=== PATIENT | female | born 1950 | race Caucasian/White ===

== ENCOUNTER 2016-05-28 20:13 | Emergency (ER) | payer MEDICARE, MEDICAID ==
[2016-05-28] MEDS ORDERED: Fentanyl 100 MCG/2 ML VIAL ONE (20:39)
[2016-05-28] MEDS ORDERED: Nitroglycerin 0.4 MG TAB (25 Tab Bottle) ONE (20:39)
[2016-05-28 21:05] LABS: PTT 25.2 SEC (22.9-36.1); Prothrombin Time 13.7 SEC (12.0-14.7)
[2016-05-28 21:07] LABS: D-Dimer Test 0.27 *mcg/mL (0.27-0.43)
[2016-05-28 21:12] LABS: #Basophils 0.1 thou/uL (0.0-0.2); #Eosinphils 0.1 thou/uL (0.0-0.7); #Lymphocytes 1.9 thou/uL (1.20-3.40); #Monocytes 0.7 thou/uL (0.11-0.59); #Neutrophils 3.1 thou/uL (1.40-6.50); %Basophils 1.4 % (0.0-1.0); %Eosinophils 1.5 % (0.0-10.0); %Lymphocytes 32.1 % (21.0-51.0); %Monocytes 11.1 % (0.0-10.0); %Neutrophils 53.9 % (42.0-75.0); ALT (SGPT) 18 U/L (0-55); AST (SGOT) 18 U/L (5-34); Albumin 4.3 g/dL (3.4-4.8); Alkaline Phosphatase 74 U/L (40-150); Anion Gap 17 mmol/L (10-20); BUN (Urea Nitrogen) 20 mg/dL (9.8-20.1); Bilirubin, Total 0.5 mg/dL (0.2-1.2); CK (CPK) 99 U/L (29-168); Calc. Creatinine Clearance 0 mL/min (70-130); Calcium 9.4 mg/dL (7.8-10.44); Carbon Dioxide 24 mmol/L (23-31); Chloride 105 mmol/L (98-107); Estimated GFR-MDRD 53; Glucose 91 mg/dL (80-115); Hemoglobin 12.6 g/dL (12.0-16.0); Mean Corpuscular HGB CONC 33.6 g/dL (32.0-36.0); Mean Corpuscular Hemoglobin 32.4 pg (27.0-31.0); Mean Corpuscular Volume 96.4 fl (81.0-99.0); Mean Platelet Volume 9.1 fL (7.4-10.4); Platelet Count 202 thou/uL (130-400); Potassium 3.5 mmol/L (3.5-5.1); Protein, Total 7.3 g/dL (5.8-8.1); RBC Distribution Width 12.4 % (11.5-14.5); Red Blood Cell (RBC) Count 3.89 mill/uL (4.20-5.40); Sodium 142 mmol/L (136-145); White Blood Cell (WBC) Count 5.8 thou/uL (4.8-10.8)
[2016-05-28 21:18] LABS: CKMB 0.8 ng/mL (0-6.6); Troponin I Less than 0.010 ng/mL (< 0.028)
--- NOTE | 2016-05-28 22:01 | RAD ---
PORTABLE CHEST 05/28/16 An AP portable film at 2035 is compared with the 03/01/14 study. The cardiac size is about the same. There is no clear vascular congestion, edema, or pleural effusio n. A little linear streaking is seen in the right base which could be atelectasis. No major lobar in filtrate was seen. IMPRESSION: No acute finding. POS: HOME
[2016-05-28 23:05] LABS: Troponin I Less than 0.010 ng/mL (< 0.028)
== END 2016-05-28 23:16 | disposition home or self-care (01) ==
LOC: BURERS 20:13
DX: R07.82 Intercostal pain (principal); I25.2 Old myocardial infarction; E78.5 Hyperlipidemia, unspecified; E78.00 Pure hypercholesterolemia, unspecified; I10 Essential (primary) hypertension
CPT/HCPCS: 36415; 71010; 80053; 82553; 84484; 85025; 85379; 85610; 85730; 93005; 96374; J3010

== ENCOUNTER 2018-03-10 22:02 | Emergency (ER) | payer MEDICARE, MEDICAID ==
[2018-03-10] MEDS ORDERED: Doxycycline Hyclate 100 MG TAB ONE (22:16)
[2018-03-10] MEDS ORDERED: Bupivacaine 0.5% 10 ML VIAL ONE (22:16)
== END 2018-03-10 22:22 | disposition home or self-care (01) ==
LOC: BURERS 22:02
DX: K04.7 Periapical abscess without sinus (principal); K02.9 Dental caries, unspecified; I25.2 Old myocardial infarction; E78.5 Hyperlipidemia, unspecified; I10 Essential (primary) hypertension; M10.9 Gout, unspecified; Z79.899 Other long term (current) drug therapy; Z79.82 Long term (current) use of aspirin
CPT/HCPCS: 64400; J3490

== ENCOUNTER 2018-07-01 03:52 | Emergency (ER) | payer MEDICARE, MEDICAID ==
[2018-07-01] MEDS ORDERED: Nitroglycerin 0.4 MG TAB 1 EACH ONE (04:33)
[2018-07-01 04:43] LABS: #Basophils 0.1 thou/uL (0.0-0.2); #Eosinphils 0.1 thou/uL (0.0-0.7); #Lymphocytes 2.8 thou/uL (1.20-3.40); #Monocytes 0.7 thou/uL (0.11-0.59); #Neutrophils 2.7 thou/uL (1.40-6.50); %Basophils 1.1 % (0.0-1.0); %Eosinophils 1.5 % (0.0-10.0); %Lymphocytes 43.6 % (21.0-51.0); %Neutrophils 42.8 % (42.0-75.0); Hemoglobin 12.9 g/dL (12.0-16.0); Mean Corpuscular HGB CONC 33.5 g/dL (32.0-36.0); Mean Corpuscular Hemoglobin 31.6 pg (27.0-31.0); Mean Corpuscular Volume 94.4 fL (78.0-98.0); Mean Platelet Volume 7.7 fL (7.4-10.4); Platelet Count 189 thou/uL (130-400); RBC Distribution Width 11.6 % (11.5-14.5); Red Blood Cell (RBC) Count 4.08 mill/uL (4.20-5.40); White Blood Cell (WBC) Count 6.3 thou/uL (4.8-10.8)
[2018-07-01 04:52] LABS: ALT (SGPT) 20 U/L (8-55); AST (SGOT) 20 U/L (5-34); Albumin 4.5 g/dL (3.4-4.8); Alkaline Phosphatase 92 U/L (40-150); Anion Gap 15 mmol/L (10-20); BUN (Urea Nitrogen) 13 mg/dL (9.8-20.1); Bilirubin, Total 0.4 mg/dL (0.2-1.2); Calc. Creatinine Clearance 0 mL/min (70-130); Calcium 9.5 mg/dL (7.8-10.44); Carbon Dioxide 29 mmol/L (23-31); Chloride 95 mmol/L (98-107); Estimated GFR-MDRD 69; Globulin 2.8 g/dL (2.4-3.5); Glucose 115 mg/dL (80-115); Lipase 29 U/L (8-78); Protein, Total 7.3 g/dL (6.0-8.3); Sodium 136 mmol/L (136-145)
[2018-07-01 04:57] LABS: Potassium 2.6 mmol/L (3.5-5.1)
[2018-07-01] MEDS ORDERED: Potassium Chloride 20 MEQ/100 ML PREMIX BAG ONE (05:00)
[2018-07-01] MEDS ORDERED: Potassium Chloride 20 MEQ TAB ONE (05:00)
--- NOTE | 2018-07-01 10:00 | RAD ---
PORTABLE CHEST: DATE: 07/01/2018. FINDINGS: An AP portable film at 0437 is compared with a 03/18 study. The heart size is stable. The interstitial markings of the lungs seem a little more prominent today than before. I cannot rule out slight congestion. There are no large effusions or lobar consolidati ons. IMPRESSION: Slight vascular prominence. See above. POS: HOME
== END 2018-07-01 05:26 | disposition short-term general hospital (02) ==
LOC: BURERS 03:52
DX: R07.9 Chest pain, unspecified (principal); I25.2 Old myocardial infarction; E78.5 Hyperlipidemia, unspecified; M10.9 Gout, unspecified; Z79.899 Other long term (current) drug therapy; Z79.82 Long term (current) use of aspirin
CPT/HCPCS: 71045; 80053; 83690; 84484; 85025; 93005; 96374; J3480

== ENCOUNTER 2020-01-28 15:01 | Emergency (ER) | payer MEDICARE, MEDICAID ==
[2020-01-28 15:51] LABS: #Lymphocytes 1.1 thou/uL (1.20-3.40); #Monocytes 0.9 thou/uL (0.11-0.59); %Basophils 0.6 % (0.0-1.0); %Eosinophils 0.2 % (0.0-10.0); %Lymphocytes 13.1 % (21.0-51.0); %Monocytes 10.6 % (0.0-10.0); %Neutrophils 75.5 % (42.0-75.0); Hemoglobin 12.6 g/dL (12.0-16.0); Mean Corpuscular HGB CONC 31.7 g/dL (32.0-36.0); Mean Corpuscular Hemoglobin 30.7 pg (27.0-31.0); Mean Corpuscular Volume 96.9 fL (78.0-98.0); Mean Platelet Volume 7.7 fL (7.4-10.4); Platelet Count 220 thou/uL (130-400); RBC Distribution Width 12.3 % (11.5-14.5)
[2020-01-28 16:06] LABS: ALT (SGPT) 15 U/L (8-55); AST (SGOT) 13 U/L (5-34); Albumin 4.4 g/dL (3.4-4.8); Alkaline Phosphatase 74 U/L (40-110); Anion Gap 15 mmol/L (10-20); BUN (Urea Nitrogen) 17 mg/dL (9.8-20.1); Bilirubin, Total 0.3 mg/dL (0.2-1.2); Calc. Creatinine Clearance 0 mL/min (70-130); Calcium 9.5 mg/dL (7.8-10.44); Carbon Dioxide 31 mmol/L (23-31); Chloride 95 mmol/L (98-107); Estimated GFR-MDRD 62; Globulin 3.3 g/dL (2.4-3.5); Glucose 144 mg/dL (83-110); Potassium 3.4 mmol/L (3.5-5.1); Protein, Total 7.7 g/dL (6.0-8.3); Sodium 138 mmol/L (136-145)
--- NOTE | 2020-01-28 16:36 | CT ---
CT ABDOMEN AND PELVIS WITHOUT CONTRAST: Date: 01/28/[address] of the abdomen and pelvis was done for evaluation of lower abdominal pain. The lung bases are clear. The liver, spleen, pancreas, gallbladder, adrenal glands, kidneys, and abdo tesfaye aorta showed no acute findings. Dense arterial calcifications are seen in the aorta. A few calc ifications around the hilum of the liver are judged to be vascular in nature as well. The major finding on this study is sigmoid diverticulosis with an area of streaking between it and th e top of the urinary bladder. Diverticulitis is presumed. There is no focal abscess or substantial fr ee fluid present at the moment. No free air was seen. There is no dilation of bowel to suggest obstru ction. CT of the pelvis was remarkable for the findings listed above. IMPRESSION: Presumed sigmoid diverticulitis. Findings called to Dr. Johnson at 1557 hours on 01/28/2020. CODE CR. POS: HOME
[2020-01-28] MEDS ORDERED: metroNIDAZOLE 250 MG TAB ONE (16:51)
[2020-01-28] MEDS ORDERED: Ciprofloxacin 500 MG TAB ONE (16:51)
[2020-01-28 16:55] LABS: Bilirubin Negative (Negative); Blood, Urine Negative (Negative); Clarity Clear (Clear); Glucose, Urine (Dipstick) Negative (Negative); Ketone, Urine Negative (Negative); Leukocyte Negative (Negative); Nitrite Negative (Negative); Protein, Urine (Dipstick) Negative (Neg-Trace); Urobilinogen 0.2 mg/dL (Less than 2)
== END 2020-01-28 17:50 | disposition home or self-care (01) ==
LOC: BURERS 15:01
DX: K57.32 Diverticulitis of large intestine without perforation or abscess without bleeding (principal); E78.5 Hyperlipidemia, unspecified; E78.00 Pure hypercholesterolemia, unspecified; I10 Essential (primary) hypertension; M10.9 Gout, unspecified; Z79.82 Long term (current) use of aspirin; Z79.899 Other long term (current) drug therapy
CPT/HCPCS: 36415; 74176; 80053; 81003; 85025

== ENCOUNTER 2020-01-29 01:01 | Emergency (ER) | payer MEDICARE, OTHER ==
[2020-01-29] MEDS ORDERED: Acetaminophen/Codeine 30-300mg Tablet ONE (01:25)
== END 2020-01-29 01:32 | disposition home or self-care (01) ==
LOC: BURERS 01:01
DX: K57.93 Diverticulitis of intestine, part unspecified, without perforation or abscess with bleeding (principal); E78.5 Hyperlipidemia, unspecified; E78.00 Pure hypercholesterolemia, unspecified; I10 Essential (primary) hypertension; M10.9 Gout, unspecified; Z79.82 Long term (current) use of aspirin; Z79.899 Other long term (current) drug therapy
CPT/HCPCS: 99283

== ENCOUNTER 2020-03-31 17:18 | Emergency (ER) | payer MEDICARE, OTHER ==
[2020-03-31 17:46] LABS: #Basophils 0.1 thou/uL (0.0-0.2); #Eosinphils 0.1 thou/uL (0.0-0.7); #Lymphocytes 1.8 thou/uL (1.20-3.40); #Monocytes 0.5 thou/uL (0.11-0.59); %Basophils 1.4 % (0.0-1.0); %Eosinophils 1.8 % (0.0-10.0); %Lymphocytes 40.9 % (21.0-51.0); %Monocytes 11.4 % (0.0-10.0); %Neutrophils 44.5 % (42.0-75.0); Hemoglobin 12.1 g/dL (12.0-16.0); Mean Corpuscular HGB CONC 32.6 g/dL (32.0-36.0); Mean Corpuscular Volume 98.1 fL (78.0-98.0); Mean Platelet Volume 7.5 fL (7.4-10.4); Platelet Count 243 thou/uL (130-400); RBC Distribution Width 12.5 % (11.5-14.5); Red Blood Cell (RBC) Count 3.78 mill/uL (4.20-5.40); White Blood Cell (WBC) Count 4.4 thou/uL (4.8-10.8)
[2020-03-31 17:51] LABS: INR-International Normal Ratio 0.9; PTT 27.5 sec (22.9-36.1); Prothrombin Time 12.7 sec (12.0-14.7)
[2020-03-31 18:01] LABS: ALT (SGPT) 20 U/L (8-55); AST (SGOT) 20 U/L (5-34); Albumin 4.4 g/dL (3.4-4.8); Alkaline Phosphatase 63 U/L (40-110); Anion Gap 16 mmol/L (10-20); BUN (Urea Nitrogen) 21 mg/dL (9.8-20.1); Bilirubin, Total 0.3 mg/dL (0.2-1.2); CK (CPK) 61 U/L (29-168); Calc. Creatinine Clearance 0 mL/min (70-130); Calcium 9.2 mg/dL (7.8-10.44); Carbon Dioxide 29 mmol/L (23-31); Chloride 99 mmol/L (98-107); Globulin 3.1 g/dL (2.4-3.5); Glucose 93 mg/dL (83-110); Potassium 3.8 mmol/L (3.5-5.1); Protein, Total 7.5 g/dL (5.8-8.1); Sodium 140 mmol/L (136-145)
[2020-03-31] MEDS ORDERED: Boostrix 0.5 ML (Tdap) VIAL ONE (18:08)
[2020-03-31] MEDS ORDERED: Bacitracin 1 PK ONE (18:13)
== END 2020-03-31 18:21 | disposition home or self-care (01) ==
LOC: BURERS 17:18
DX: S61.257A Open bite of left little finger without damage to nail, initial encounter (principal); E78.5 Hyperlipidemia, unspecified; E78.00 Pure hypercholesterolemia, unspecified; I10 Essential (primary) hypertension; M10.9 Gout, unspecified; I25.2 Old myocardial infarction; Z79.82 Long term (current) use of aspirin; Z79.899 Other long term (current) drug therapy; W59.11XA Bitten by nonvenomous snake, initial encounter
CPT/HCPCS: 36415; 80053; 82550; 85025; 85384; 85610; 85730; 90471; 90715

== ENCOUNTER 2020-05-25 12:00 | Emergency (ER) | payer MEDICARE, OTHER ==
[2020-05-25] MEDS ORDERED: traMADol HCl 50 MG TAB ONE (12:38)
[2020-05-25] MEDS ORDERED: Clindamycin 150 MG CAP ONE (12:39)
== END 2020-05-25 12:50 | disposition home or self-care (01) ==
LOC: BURERS 12:00
DX: N61.0 Mastitis without abscess (principal); I25.2 Old myocardial infarction; E78.5 Hyperlipidemia, unspecified; E78.00 Pure hypercholesterolemia, unspecified; I10 Essential (primary) hypertension; M10.9 Gout, unspecified; Z79.82 Long term (current) use of aspirin; Z79.899 Other long term (current) drug therapy
CPT/HCPCS: 99283

== ENCOUNTER 2020-07-23 19:32 | Emergency (ER) | payer MEDICARE, OTHER ==
[2020-07-23] MEDS ORDERED: Acetaminophen 500 MG TAB ONE (19:59)
== END 2020-07-23 20:29 | disposition home or self-care (01) ==
LOC: BURERS 19:32
DX: S29.011A Strain of muscle and tendon of front wall of thorax, initial encounter (principal); I25.2 Old myocardial infarction; E78.5 Hyperlipidemia, unspecified; E78.00 Pure hypercholesterolemia, unspecified; I10 Essential (primary) hypertension; M10.9 Gout, unspecified; I25.10 Atherosclerotic heart disease of native coronary artery without angina pectoris; E11.9 Type 2 diabetes mellitus without complications; Z79.899 Other long term (current) drug therapy; Z79.82 Long term (current) use of aspirin; X50.1XXA Overexertion from prolonged static or awkward postures, initial encounter

== ENCOUNTER 2020-12-06 02:59 | Emergency (ER) | payer OTHER ==
[2020-12-06] MEDS ORDERED: Nitroglycerin 0.4 MG TAB 1 EACH ONE ×2 (03:25→03:37)
[2020-12-06] MEDS ORDERED: Nitroglycerin 0.4 MG TAB (25 Tab Bottle) SL PRN (03:29)
[2020-12-06] MEDS ORDERED: Aspirin Chewable 81 MG TAB ONE (03:33)
[2020-12-06 03:38] LABS: #Basophils 0.1 thou/uL (0.0-0.2); #Eosinphils 0.1 thou/uL (0.0-0.7); #Lymphocytes 2.2 thou/uL (1.20-3.40); #Monocytes 0.6 thou/uL (0.11-0.59); #Neutrophils 2.4 thou/uL (1.40-6.50); %Basophils 1.2 % (0.0-1.0); %Eosinophils 1.6 % (0.0-10.0); %Lymphocytes 41.9 % (21.0-51.0); %Monocytes 11.1 % (0.0-10.0); %Neutrophils 44.3 % (42.0-75.0); Hemoglobin 11.9 g/dL (12.0-16.0); Mean Corpuscular HGB CONC 34.5 g/dL (32.0-36.0); Mean Corpuscular Hemoglobin 33.2 pg (27.0-31.0); Mean Corpuscular Volume 96.1 fL (78.0-98.0); Mean Platelet Volume 8.3 fL (7.4-10.4); Platelet Count 254 thou/uL (130-400); RBC Distribution Width 12.3 % (11.5-14.5); White Blood Cell (WBC) Count 5.4 thou/uL (4.8-10.8)
[2020-12-06 03:43] LABS: ALT (SGPT) 15 U/L (8-55); AST (SGOT) 16 U/L (5-34); Albumin 4.5 g/dL (3.4-4.8); Alkaline Phosphatase 64 U/L (40-110); Anion Gap 16 mmol/L (10-20); BUN (Urea Nitrogen) 23 mg/dL (9.8-20.1); Bilirubin, Total 0.4 mg/dL (0.2-1.2); Calc. Creatinine Clearance 0 mL/min (70-130); Calcium 10.4 mg/dL (7.8-10.44); Carbon Dioxide 26 mmol/L (23-31); Chloride 103 mmol/L (98-107); Globulin 3.6 g/dL (2.4-3.5); Glucose 80 mg/dL (83-110); Protein, Total 8.1 g/dL (5.8-8.1); Sodium 142 mmol/L (136-145)
[2020-12-06 03:45] LABS: Potassium 2.8 mmol/L (3.5-5.1)
[2020-12-06] MEDS ORDERED: Potassium Chloride 20 MEQ TAB ONE (03:46)
[2020-12-06] MEDS ORDERED: Nitroglycerin 2% Ointment 1 INCH/1 GM Packet ONE (04:08)
[2020-12-06 07:20] LABS: Troponin I 0.011 ng/mL (< 0.028)
[2020-12-06 07:54] LABS: SARS-CoV-2 NAA Rapid Test Not Detected (NotDetected)
[2020-12-06] MEDS ORDERED: Acetaminophen 500 MG TAB ONE (07:59)
[2020-12-06] MEDS ORDERED: Hydrochlorothiazide 25 MG TAB ONE (08:29)
[2020-12-06] MEDS ORDERED: Aspirin 325 MG TAB ONE (08:29)
[2020-12-06] MEDS ORDERED: Clopidogrel Bisulfate 75 MG TAB PO SCH (08:45)
[2020-12-06] MEDS ORDERED: Losartan Potassium 50 MG TAB PO SCH (08:45)
[2020-12-06] MEDS ORDERED: Metoprolol Tartrate 50 MG TAB PO SCH (09:15)
[2020-12-06 11:00] LABS: Troponin I Less than 0.010 ng/mL (< 0.028)
== END 2020-12-06 10:43 | disposition short-term general hospital (02) ==
LOC: BURERS 02:59
DX: R07.2 Precordial pain (principal); Z20.822 Contact with and (suspected) exposure to COVID-19; Z79.899 Other long term (current) drug therapy; Z79.82 Long term (current) use of aspirin; I25.2 Old myocardial infarction; E78.5 Hyperlipidemia, unspecified; E78.00 Pure hypercholesterolemia, unspecified; I10 Essential (primary) hypertension; M10.9 Gout, unspecified; E11.9 Type 2 diabetes mellitus without complications
CPT/HCPCS: 71045; 80053; 83690; 83880; 84484; 85025; 93005; 94760; U0002

== ENCOUNTER 2021-01-09 19:12 | Emergency (ER) | payer MEDICARE, OTHER ==
[2021-01-09] MEDS ORDERED: Azithromycin 250 MG TAB ONE (19:43)
== END 2021-01-09 20:24 | disposition home or self-care (01) ==
LOC: BURERS 19:12
DX: H60.91 Unspecified otitis externa, right ear (principal); H66.91 Otitis media, unspecified, right ear; E78.5 Hyperlipidemia, unspecified; E78.00 Pure hypercholesterolemia, unspecified; I10 Essential (primary) hypertension; M10.9 Gout, unspecified; E11.9 Type 2 diabetes mellitus without complications
CPT/HCPCS: 99282

== ENCOUNTER 2021-07-09 14:28 | Emergency (ER) | payer MEDICARE, OTHER | END 2021-07-09 14:50 | disposition home or self-care (01) | LOC: BURERS 14:28 | DX: H92.02 Otalgia, left ear (principal); E11.9 Type 2 diabetes mellitus without complications; I10 Essential (primary) hypertension; I25.2 Old myocardial infarction; E78.5 Hyperlipidemia, unspecified; E78.00 Pure hypercholesterolemia, unspecified; M10.9 Gout, unspecified | CPT/HCPCS: 99282 ==

== ENCOUNTER 2021-08-02 21:34 | Emergency (ER) | payer MEDICARE, OTHER ==
[2021-08-02 22:11] LABS: #Eosinphils 0.1 thou/uL (0.0-0.7); #Lymphocytes 1.9 thou/uL (1.20-3.40); #Monocytes 0.6 thou/uL (0.11-0.59); #Neutrophils 2.6 thou/uL (1.40-6.50); %Basophils 0.8 % (0.0-1.0); %Eosinophils 1.2 % (0.0-10.0); %Lymphocytes 36.4 % (21.0-51.0); %Monocytes 11.9 % (0.0-10.0); %Neutrophils 49.7 % (42.0-75.0); Hemoglobin 11.8 g/dL (12.0-16.0); Mean Corpuscular HGB CONC 34.8 g/dL (32.0-36.0); Mean Corpuscular Hemoglobin 33.2 pg (27.0-31.0); Mean Corpuscular Volume 95.3 fL (78.0-98.0); Mean Platelet Volume 8.1 fL (7.4-10.4); Platelet Count 223 thou/uL (130-400); Red Blood Cell (RBC) Count 3.56 mill/uL (4.20-5.40); White Blood Cell (WBC) Count 5.1 thou/uL (4.8-10.8)
[2021-08-02 22:23] LABS: ALT (SGPT) 12 U/L (8-55); AST (SGOT) 15 U/L (5-34); Albumin 4.3 g/dL (3.4-4.8); Alkaline Phosphatase 53 U/L (40-110); Anion Gap 19 mmol/L (10-20); BUN (Urea Nitrogen) 27 mg/dL (9.8-20.1); Bilirubin, Total 0.5 mg/dL (0.2-1.2); Calc. Creatinine Clearance 0 mL/min (70-130); Calcium 9.7 mg/dL (7.8-10.44); Carbon Dioxide 25 mmol/L (23-31); Chloride 101 mmol/L (98-107); Glucose 100 mg/dL (83-110); Potassium 3.5 mmol/L (3.5-5.1); Protein, Total 7.3 g/dL (5.8-8.1); Sodium 141 mmol/L (136-145)
[2021-08-03 00:15] LABS: Bilirubin Negative (Negative); Blood, Urine Negative (Negative); Clarity Clear (Clear); Glucose, Urine (Dipstick) Negative (Negative); Ketone, Urine Negative (Negative); Leukocyte Trace (Negative); Nitrite Negative (Negative); Protein, Urine (Dipstick) Negative (Neg-Trace); Specific Gravity, Urine 1.015 (1.005-1.030); Urobilinogen 0.2 mg/dL (Less than 2)
[2021-08-03 00:32] LABS: RBC/HPF 0-3 HPF (0-3); Squamous Epithelial 0-3 HPF (0-3)
[2021-08-03 00:33] LABS: Bacteria/HPF Rare-Few HPF (None Seen); Mucous/LPF 1+ LPF (<2+)
[2021-08-03] MEDS ORDERED: Sulfameth/Trimethoprim DS 800-160mg TAB ONE (01:09)
== END 2021-08-03 01:16 | disposition home or self-care (01) ==
LOC: BURERS 21:34
DX: N39.0 Urinary tract infection, site not specified (principal); R53.1 Weakness; I25.2 Old myocardial infarction; E78.5 Hyperlipidemia, unspecified; E78.00 Pure hypercholesterolemia, unspecified; I10 Essential (primary) hypertension; E11.9 Type 2 diabetes mellitus without complications; M10.9 Gout, unspecified
CPT/HCPCS: 71045; 80053; 81003; 81015; 83605; 83880; 84484; 85025; 93005

== ENCOUNTER 2022-04-27 10:49 | Emergency (ER) | payer OTHER ==
[2022-04-27] MEDS ORDERED: Clindamycin 150 MG CAP ONE (11:17)
== END 2022-04-27 11:25 | disposition home or self-care (01) ==
LOC: BURERS 10:49
DX: K11.20 Sialoadenitis, unspecified (principal); I25.2 Old myocardial infarction; E78.00 Pure hypercholesterolemia, unspecified; I10 Essential (primary) hypertension; E11.9 Type 2 diabetes mellitus without complications; M10.9 Gout, unspecified; Z95.5 Presence of coronary angioplasty implant and graft
CPT/HCPCS: 99283

== ENCOUNTER 2022-06-05 15:30 | Emergency (ER) | payer OTHER ==
[2022-06-05 15:59] LABS: #Basophils 0.1 thou/uL (0.0-0.2); #Eosinphils 0.1 thou/uL (0.0-0.7); #Lymphocytes 1.2 thou/uL (1.20-3.40); #Monocytes 0.6 thou/uL (0.11-0.59); #Neutrophils 2.9 thou/uL (1.40-6.50); %Basophils 1.4 % (0.0-1.0); %Eosinophils 2.3 % (0.0-10.0); %Lymphocytes 23.9 % (21.0-51.0); %Neutrophils 60.4 % (42.0-75.0); Hemoglobin 12.1 g/dL (12.0-16.0); Mean Platelet Volume 7.7 fL (7.4-10.4); Platelet Count 237 10x3/uL (130-400); RBC Distribution Width 12.3 % (11.5-14.5); Red Blood Cell (RBC) Count 3.78 mill/uL (4.20-5.40); White Blood Cell (WBC) Count 4.8 10x3/uL (4.8-10.8)
[2022-06-05 16:17] LABS: ALT (SGPT) 15 U/L (8-55); AST (SGOT) 20 U/L (5-34); Albumin 4.5 g/dL (3.4-4.8); Alkaline Phosphatase 61 U/L (40-110); Anion Gap 15 mmol/L (10-20); BUN (Urea Nitrogen) 20 mg/dL (9.8-20.1); Bilirubin, Total 0.4 mg/dL (0.2-1.2); Calc. Creatinine Clearance 0 mL/min (70-130); Carbon Dioxide 27 mmol/L (23-31); Chloride 101 mmol/L (98-107); Estimated GFR 64; Globulin 3.2 g/dL (2.4-3.5); Glucose 110 mg/dL (83-110); Magnesium 1.9 mg/dL (1.6-2.6); Potassium 3.7 mmol/L (3.5-5.1); Protein, Total 7.7 g/dL (5.8-8.1); Sodium 139 mmol/L (136-145)
[2022-06-05 17:58] LABS: Troponin I Less than 0.010 ng/mL (< 0.028)
== END 2022-06-05 18:43 | disposition home or self-care (01) ==
LOC: BURERS 15:30
DX: M94.0 Chondrocostal junction syndrome [Tietze] (principal); I10 Essential (primary) hypertension; E11.9 Type 2 diabetes mellitus without complications; Z79.899 Other long term (current) drug therapy; Z79.84 Long term (current) use of oral hypoglycemic drugs; Z79.82 Long term (current) use of aspirin
CPT/HCPCS: 36415; 71045; 80053; 83605; 83735; 83880; 84443; 84484; 85025; 85379; 93005

== ENCOUNTER 2023-10-27 03:49 | Emergency (ER) | payer OTHER, MEDICAID ==
[2023-10-27 04:12] LABS: #Basophils 0.1 thou/uL (0.0-0.2); #Eosinphils 0.1 thou/uL (0.0-0.7); #Lymphocytes 0.9 thou/uL (1.20-3.40); #Monocytes 0.5 thou/uL (0.11-0.59); #Neutrophils 2.3 thou/uL (1.40-6.50); %Basophils 2.7 % (0.0-1.0); %Eosinophils 2.2 % (0.0-10.0); %Lymphocytes 22.8 % (21.0-51.0); %Neutrophils 59.4 % (42.0-75.0); Hematocrit 28.6 % (36.0-47.0); Hemoglobin 9.7 g/dL (12.0-16.0); Mean Corpuscular HGB CONC 33.8 g/dL (32.0-36.0); Mean Corpuscular Hemoglobin 31.5 pg (27.0-31.0); Mean Corpuscular Volume 93.2 fl (78.0-98.0); Mean Platelet Volume 7.2 fL (7.4-10.4); Platelet Count 250 10x3/uL (130-400); RBC Distribution Width 12.7 % (11.5-14.5); Red Blood Cell (RBC) Count 3.07 mill/uL (4.20-5.40); White Blood Cell (WBC) Count 3.9 10x3/uL (4.8-10.8)
[2023-10-27] MEDS ORDERED: Nitroglycerin 2% Ointment 1 INCH/1 GM Packet ONE (04:14)
[2023-10-27 04:29] LABS: ALT (SGPT) 13 U/L (8-55); AST (SGOT) 18 U/L (5-34); Albumin 3.3 g/dL (3.4-4.8); Alkaline Phosphatase 74 U/L (40-110); Anion Gap 17 mmol/L (10-20); BUN (Urea Nitrogen) 27 mg/dL (9.8-20.1); Bilirubin, Total 0.3 mg/dL (0.2-1.2); Calc. Creatinine Clearance 0 mL/min (70-130); Calcium 10.1 mg/dL (7.8-10.44); Carbon Dioxide 26 mmol/L (23-31); Chloride 98 mmol/L (98-107); Estimated GFR 39; Glucose 100 mg/dL (83-110); Potassium 4.2 mmol/L (3.5-5.1); Protein, Total 7.3 g/dL (5.8-8.1); Sodium 137 mmol/L (136-145)
[2023-10-27 04:32] LABS: Troponin I Less than 0.010 ng/mL (< 0.028)
[2023-10-27 07:55] LABS: Troponin I Less than 0.010 ng/mL (< 0.028)
[2023-10-27] MEDS ORDERED: Azithromycin 250 MG TAB ONE (11:01)
== END 2023-10-27 14:06 | disposition short-term general hospital (02) ==
LOC: BURERS 03:49
DX: J18.9 Pneumonia, unspecified organism (principal); I10 Essential (primary) hypertension
CPT/HCPCS: 71045; 71250; 80053; 83880; 84484; 85025; 93005

== ENCOUNTER 2023-12-20 14:06 | Outpatient (CLI) | payer OTHER | END 2023-12-20 14:07 | disposition home or self-care (01) | LOC: BURRAD 14:06 | PROVIDERS: ATTEND Physician Assistant | DX: R05.1 Acute cough (principal); J98.4 Other disorders of lung | CPT/HCPCS: 71046 ==

== ENCOUNTER 2024-12-12 04:27 | Emergency (ER) | payer OTHER ==
[2024-12-12 05:32] LABS: Glucose, Urine (Dipstick) Negative (Negative); Leukocyte Trace (Negative); Protein, Urine (Dipstick) Negative (Neg-Trace); Specific Gravity, Urine 1.010 (1.005-1.030)
[2024-12-12 05:36] LABS: Bacteria/HPF None Seen HPF (None Seen); CAUTI Indications for Culture Pelvic or flank pain; RBC/HPF None Seen HPF (0-3); WBC/HPF None Seen HPF (0-3)
[2024-12-12 05:37] LABS: Urine Culture Reflex No No
[2024-12-12 05:43] LABS: ALT (SGPT) 17 U/L (Less than 34); AST (SGOT) 61 U/L (11-34); Albumin 3.8 g/dL (3.1-4.5); Alkaline Phosphatase 85 U/L (40-110); Anion Gap 18 mmol/L (10-20); BUN (Urea Nitrogen) 28 mg/dL (9.8-20.1); Bilirubin, Total 0.2 mg/dL (0.3-1.2); Calc. Creatinine Clearance 0 mL/min (70-130); Calcium 10.2 mg/dL (7.8-10.44); Carbon Dioxide 24 mmol/L (23-31); Chloride 101 mmol/L (98-107); Globulin 4.5 g/dL (2.4-3.5); Glucose 96 mg/dL (83-110); Potassium 3.6 mmol/L (3.5-5.1); Sodium 139 mmol/L (136-145)
[2024-12-12 05:50] LABS: Hematocrit 31.1 % (36.0-47.0); Hemoglobin 11.4 g/dL (12.0-16.0); MDiff Complete? YES; Mean Corpuscular Hemoglobin 36.0 pg (27.0-31.0); Mean Corpuscular Volume 98.4 fl (78.0-98.0); Platelet Adequacy Comment Appears Adequate; Platelet Count 171 10x3/uL (130-400); Red Blood Cell (RBC) Count 3.16 mill/uL (4.20-5.40); White Blood Cell (WBC) Count 3.6 10x3/uL (4.8-10.8)
[2024-12-12] MEDS ORDERED: Iopamidol 370 76% 100 ML VIAL ONE (10:03)
== END 2024-12-12 06:55 | disposition home or self-care (01) ==
LOC: BURERS 04:27
DX: K57.32 Diverticulitis of large intestine without perforation or abscess without bleeding (principal); E78.00 Pure hypercholesterolemia, unspecified; I10 Essential (primary) hypertension; Z79.82 Long term (current) use of aspirin; Z79.899 Other long term (current) drug therapy
CPT/HCPCS: 74177; 80053; 81001; 85025; Q9967

== ENCOUNTER 2025-02-22 22:44 | Emergency (ER) | payer OTHER ==
[2025-02-22 23:31] LABS: INR-International Normal Ratio 1.1; Prothrombin Time 14.1 sec (12.0-14.7)
[2025-02-22 23:32] LABS: PTT 28.5 sec (22.9-36.1)
[2025-02-22 23:38] LABS: ALT (SGPT) 12 U/L (Less than 34); AST (SGOT) 27 U/L (11-34); Albumin 3.2 g/dL (3.1-4.5); Alkaline Phosphatase 56 U/L (40-110); Anion Gap 16 mmol/L (10-20); BUN (Urea Nitrogen) 34 mg/dL (9.8-20.1); Bilirubin, Total 0.2 mg/dL (0.3-1.2); Calc. Creatinine Clearance 0 mL/min (70-130); Calcium 9.5 mg/dL (7.8-10.44); Carbon Dioxide 24 mmol/L (23-31); Chloride 102 mmol/L (98-107); Globulin 3.3 g/dL (2.4-3.5); Glucose 86 mg/dL (83-110); Potassium 3.8 mmol/L (3.5-5.1); Sodium 138 mmol/L (136-145)
[2025-02-22 23:44] LABS: Hematocrit 28.2 % (36.0-47.0); Hemoglobin 9.5 g/dL (12.0-16.0); MDiff Complete? YES; Mean Corpuscular Hemoglobin 36.7 pg (27.0-31.0); Mean Corpuscular Volume 110.0 fl (78.0-98.0); Platelet Adequacy Comment Appears Adequate; Platelet Count 170 10x3/uL (130-400); Red Blood Cell (RBC) Count 2.58 mill/uL (4.20-5.40); White Blood Cell (WBC) Count 3.6 10x3/uL (4.8-10.8)
[2025-02-22] MEDS ORDERED: Acetaminophen 500 MG TAB ONE (23:44)
[2025-02-22 23:57] LABS: Glucose, Urine (Dipstick) Negative (Negative); Leukocyte Negative (Negative); Protein, Urine (Dipstick) Negative (Neg-Trace); Specific Gravity, Urine 1.010 (1.005-1.030)
[2025-02-22 23:59] LABS: Bacteria/HPF Rare-Few HPF (None Seen); CAUTI Indications for Culture Alt mental st,lethar; RBC/HPF None Seen HPF (0-3); Urine Culture Reflex No No; WBC/HPF None Seen HPF (0-3)
== END 2025-02-23 00:34 | disposition home or self-care (01) ==
LOC: BURERS 22:44
DX: S00.83XA Contusion of other part of head, initial encounter (principal); S80.211A Abrasion, right knee, initial encounter; I25.2 Old myocardial infarction; I10 Essential (primary) hypertension; W01.0XXA Fall on same level from slipping, tripping and stumbling without subsequent striking against object, initial encounter
CPT/HCPCS: 70450; 72125; 80053; 81001; 85025; 85610; 85730